=== PATIENT | male | born 1955 | race Caucasian/White ===

== ENCOUNTER 2018-02-13 22:29 | Emergency (ER) | payer OTHER ==
[2018-02-13] MEDS: METHYLPREDNISOLONE 125 MG INJ IM (23:21)
[2018-02-13] MEDS: IPRATROPIUM (NEB) 0.5 MG/2.5 ML AMP NEB (23:32)
[2018-02-13] MEDS: ALBUTEROL 0.5% (NEB) 2.5 MG/0.5 ML AMP INH (23:32)
[2018-02-14] MEDS: ALBUTEROL 0.5% (NEB) 2.5 MG/0.5 ML AMP INH (01:11)
== END 2018-02-14 02:26 | disposition home or self-care (01) ==
LOC: FTE 22:29
DX: J45.901 Unspecified asthma with (acute) exacerbation (principal); J20.9 Acute bronchitis, unspecified
CPT/HCPCS: 94644; 94645; 96372; 99284-25

== ENCOUNTER 2018-03-11 21:08 | Emergency (ER) | payer OTHER ==
[2018-03-11] MEDS: ALBUTEROL 0.083% (NEB) 2.5 MG/3 ML AMP NEB (21:43)
[2018-03-11] MEDS: IPRATROPIUM (NEB) 0.5 MG/2.5 ML AMP NEB (21:44)
== END 2018-03-11 23:29 | disposition home or self-care (01) ==
LOC: FTE 21:08
DX: J45.901 Unspecified asthma with (acute) exacerbation (principal)
CPT/HCPCS: 94664; 99284-25

== ENCOUNTER 2019-01-20 21:49 | Emergency (ER) | payer OTHER ==
[2019-01-21] MEDS: IBUPROFEN 600 MG TAB PO (01:31)
== END 2019-01-21 01:33 | disposition home or self-care (01) ==
LOC: FTE 21:49
DX: K08.89 Other specified disorders of teeth and supporting structures (principal); J45.909 Unspecified asthma, uncomplicated; I10 Essential (primary) hypertension
CPT/HCPCS: 99283; Z7502